=== PATIENT | female | born 1955 | race Caucasian/White ===

== ENCOUNTER 2019-10-13 06:32 | Observation (INO) | payer MEDICARE ==
[2019-10-07 16:07] LABS: BASOPHILS % 0.6 % (0.0-1.0); EOSINOPHILS # (AUTO) 0.1 (0.0-0.4); EOSINOPHILS % 1.5 % (0.0-6.0); HEMATOCRIT 37.3 % (34.2-44.1); HEMOGLOBIN 11.9 g/dL (12.0-16.0); LYMPHOCYTES # (AUTO) 2.2 (1.0-3.2); LYMPHOCYTES % 32.7 % (18.0-39.1); MEAN CORPUSCULAR HEMOGLOBIN 27.9 pg (28-32); MEAN CORPUSCULAR HGB CONC 31.9 g/dL (31-35); MEAN CORPUSCULAR VOLUME 87.6 fL (81-99); MONOCYTES # (AUTO) 0.7 (0.2-0.8); MONOCYTES % 10.7 % (4.4-11.3); NEUTROPHILS # (AUTO) 3.7 (2.1-6.9); NEUTROPHILS % 54.4 % (38.7-80.0); PLATELET COUNT 292 x10e3/uL (140-360); RED BLOOD COUNT 4.26 x10e6/uL (3.6-5.1); RED CELL DISTRIBUTION WIDTH 13.3 % (11.7-14.4)
[2019-10-07 16:17] LABS: INR 0.92; PROTHROMBIN TIME 12.8 seconds (11.9-14.5)
[2019-10-07 16:18] LABS: PARTIAL THROMBOPLASTIN TIME 24.8 seconds (23.8-35.5)
[2019-10-07 16:23] LABS: ANION GAP 12.5 mmol/L (8-16); CALCIUM 9.2 mg/dL (8.4-10.2); CREATININE, SERUM 1.03 mg/dL (0.57-1.11); POTASSIUM 4.5 mmol/L (3.5-5.1)
--- NOTE | 2019-10-07 16:52 | Diagnostic Imaging Report ---
Examination: PA and lateral view of the chest. COMPARISON: None. INDICATION: Preoperative evaluation, spine surgery DISCUSSION: Lines/tubes: None. Lungs: The lungs are well inflated and clear. No pneumonia or pulmonary edema. Pleura: No pleural effusion or pneumothorax. Heart and mediastinum: The heart and the mediastinum are unremarkable. Bones and soft tissues: No acute bony abnormalities. IMPRESSION: 1. No acute cardiopulmonary abnormalities. Signed by: Dr. Tim Lambert M.D. on 10/07/2019 4:49 PM
[~2019-10-13] VITALS: Ht 154.9 cm; Wt 61.2 kg
[~2019-10-13 06:32] MED LIST: ASPIRIN81 MG PO; MELOXICAM7.5 MG PO; NEXIUM40 MG PO; PREMARIN CREAM VG; RIZATRIPTAN5 MG PO; VITAMIN B-121000 MCG PO; VITAMIN D3250 MCG PO; [UNRECOGNIZED DRUG - OTHER] OU
[2019-10-13] MEDS ORDERED: BACITRACIN 50,000 UNIT VIAL ONE (06:54)
[2019-10-13] MEDS ORDERED: THROMBIN FOR SOLN 5,000 UNIT VIAL ONE (06:54)
[2019-10-13] MEDS ORDERED: BUPIVACAINE 0.5%/EPI 30 ML SDV INJ ONE (06:54)
[2019-10-13] MEDS ORDERED: CEFAZOLIN SOD 1 GM/NS 50ML 50 ML IV ONE (07:25)
[2019-10-13] MEDS ORDERED: MORPHINE SULFATE 5 MG/ML VIAL IM PRN (10:30)
[2019-10-13] MEDS ORDERED: ONDANSETRON HCL INJ 2MG/ML 2ML 2 MG/ML VIAL IV PRN (10:30)
[2019-10-13] MEDS ORDERED: MELOXICAM 7.5 MG TAB PO PRN (10:30)
[2019-10-13] MEDS ORDERED: ACETAMINOPHEN 325 MG TAB PO PRN (10:30)
[2019-10-13] MEDS ORDERED: PROMETHAZINE HCL (IM) 25 MG/ML VIAL IM PRN (10:30)
[2019-10-13] MEDS ORDERED: CARISOPRODOL 350 MG TAB PO PRN (10:30)
[2019-10-13] MEDS: LACTATED RINGER'S 1,000 ML IV SCH ×2 (10:30→18:50)
[2019-10-13] MEDS ORDERED: RIZATRIPTAN BENZOATE 10 MG PO PRN (10:30)
[2019-10-13] MEDS ORDERED: MAGNESIUM/ALUMINUM/SIMETHICONE 30 ML UDC PO PRN (10:30)
[2019-10-13] MEDS ORDERED: HYDROMORPHONE 2MG/ML 2 MG/ML ML IV PRN (10:30)
[2019-10-13] MEDS ORDERED: CONJUGATED ESTROGENS VG SCH (10:30)
[2019-10-13] MEDS ORDERED: [UNRECOGNIZED DRUG - OTHER] OU PRN (10:30)
--- OUTSIDE RECORDS SUMMARY | 2019-10-13 11:00 | XMS REPORT | Continuity of Care Document ---
Author Author [facility] Organization [facility] Address [address] [place] [address] Phone Unavailable Care Team Providers Care Staff Midwife Name Role Phone Curry BENSON, Salvador Tatum PCP CATHIE REYES Attphyiwona Astudillo MD, Miguel Attphys Payers Payer Name Policy Type Policy Number Effective Date Expiration Date S ource AETNA MEDICAREAETNA MEDICARE HMO/PPO [facility]xxxxxxxx2018-Present HMO xxxxxxxx 2018 00:00:00 [facility] Problems This patient has no known problems. Allergies, Adverse Reactions, Alerts Allergy Name Allergy Type Status Severity Reaction(s) Onset Date Inacti ve Date Treating Clinician Comments Source Levofloxacin Propensity to adverse reactions to drug Active 2015-08-28 00:00:00 Judah ramirez No Known Allergies DA Active U 2011-05-28 00:00:00 [facility] Family History Family Member Diagnosis Comments Start Date Stop Date Source Other Diabetes Judah Crump ist Other Heart disease Judah reyes Other Hypertension Judah Meth odroseline Social History Social Habit Start Date Stop Date Quantity Comments Source Sex Assigned At [facility] Alcohol intake 2016-08-27 00:00:00 2016-08-27 00:00:00 Current non-drinker of alcohol (finding) [facility] Smoking Status Start Date Stop Date Source Never smoker So Method[facility] t Medications Ordered Medication Name Filled Medication Name Start Date Stop Da te Current Medication? Ordering Clinician Indication Dosage Frequency Signature (SIG) Comments Components Source esomeprazole (NexIUM) 40 MG capsule 2019-03-22 00:00:00 Yes TAKE ONE (1) CAPSULE(S) BY MOUTH DAILY BEFORE BREAKFAST. [facility] cyanocobalamin (VITAMIN B-12) 1000 MCG tablet 2019-03-15 11:12:4 4 Yes 1000ug QD Take 1,000 mcg by mouth daily. [facility] conjugated estrogens (PREMARIN) 0.625 mg/gram vaginal cream 2019-03-15 11:12:44 Yes .5g QD Insert 0.5 g into the vagina daily. [facility] aspirin (ECOTRIN) 81 MG enteric coated tablet 2019-03-15 11:09:5 3 Yes 81mg QD Take 81 mg by mouth daily. Zah[facility] cholecalciferol, vitamin D3, (VITAMIN D3) 1,000 unit tablet 2019-03-15 11:09:53 Yes 1000U QD Take 1,000 Units by mouth snehal ly. [facility] meloxicam (MOBIC) 7.5 mg tablet 2019-03-15 11:09:53 Yes 7.5mg Q24H Take 7.5 mg by mouth daily as needed for moderate pain. [facility] rizatriptan HAND HARDENER (MAXALT-HAND HARDENER) 10 MG disintegrating tablet 2019-03-05 00:00:00 Yes [facility] esomeprazole (NexIUM) 40 MG capsule 2018-03-03 00:00:0 0 2019-03-22 00:00:00 No TAKE 1 CAPSULE DAILY BEFORE BREAKFAST [facility] Vital Signs Vital Name Observation Time Observation Value Comments Source Systolic blood pressure 2019-03-15 11:12:00 125 mm[Hg] [facility] Diastolic blood pressure 2019-03-15 11:12:00 81 mm[Hg] [facility] Heart rate 2019-03-15 11:12:00 80 /min [facility] Body height 2019-03-15 11:12:00 157.5 cm [facility] Body weight 2019-03-15 11:12:00 60.782 kg [facility] BMI 2019-03-15 11:12:00 24.51 kg/m2 [facility] Procedures This patient has no known procedures. Plan of Care Planned Activity Planned Date Details Comments Source Future Scheduled Test 2022-09-11 00:00:00 COLONOSCOPY SCREEN ING [code = COLONOSCOPY SCREENING] [facility] Scheduled Test 2019-11-01 00:00:00 INFLUENZA VACCINE [code = INFLUENZA VACCINE] [facility] Scheduled Test 2018 00:00:00 65+ PNEUMOCOCCAL V ACCINE (1 of 2 - PCV13) [code = 65+ PNEUMOCOCCAL VACCINE (1 of 2 - PCV13)] [facility] Future Scheduled Test 2003 00:00:00 BREAST CANCER SCRE ENING [code = BREAST CANCER SCREENING] [facility] Scheduled Test 2003 00:00:00 SHINGLES VACCINES (#1) [code = SHINGLES VACCINES (#1)] [facility] Results Test Description Test Time Test Comments Results Result Comments Source CHEST 2 VIEWS 2019-10-07 16:49:00 [place] [address] Patient Name: CATHY ZIEGLER MR #: [id number] : 1955 Age/Sex: 64/F Req #: [id number] Adm Physician: Ordered by: CATHIE REYES MD Report #: [id number] Location: OR Room/Bed: Procedure: [id number] DX/CHEST 2 VIEWS Exam Date: Exam Time: REPORT STATUS: Signed Examination: PA and lateral view of the chest. COMPARISON: None. INDICATION: Preoperative evaluation, spine surgery DISCUSSION: Lines/tubes: None. Lungs: The lungs are well inflated and clear. No pneumonia or pulmonary edema. Pleura: No pleural effusion or pneumothorax. Heart and mediastinum: The heart and the mediastinum are unremarkable. Bones and soft tissues: No acute bony abnormalities. IMPRESSION: 1. No acute cardiopulmonary abnormalities. Signed by: Dr. Dlalas Nash M.D. on 10/07/2019 4:49 PM Dictated By: DALLAS NAHS MD 48 Transcribed By: ZARA on 10/07/191648 COPY TO: CATHIE REYES MD - CT ABD PELVIS W/CONT 2018-12-18 09:07:00 Nam e: CATHY ZIEGLER [facility] : 1955 Age/S: 63 / F [address] [facility] Unit #: [id number] Loc: [facility] [place] [address] Phys: Farhad Gallegos MD Acct: [id number] Dis Date: Status: REG ER PHONE #: [phone] Exam Date: 12/18/2018 0850 FAX #: [phone] Reason: vomiting. periumb pain EXAMS: CPT CODE: [id number] CT ABD PELVIS W/CONT 35452 REASON FOR EXAM: vomiting. periumb pain EXAM ORDER DATE: 12/18/2018 8:34 AM Ordering Gregory: Farhad Gallegos MD PROCEDURE: - CT ABD PELVIS W/CONT COMPARISON: FINDINGS: CT images of the abdomen and pelvis were obtained with IV and without oral contrast at 5mm. Dose modulation, iterative reconstruction, and/or weight based adjustment of the MA/KV was utilized to reduce the radiation dose to as low as reasonably ach ievable. Intravenous contrast: 100cc of Omnipaque 370. The liver, spleen, pancreas are grossly within normal limits. The gallbladder is unremarkable by CT The kidneys are within normal limits. The urinary bladder is unremarkable. The colon and stomach are within normal limits without evidence of obstruction. The appendix is unremarkable. No evidence of free air or free fluid. The uterus is not visualized suggestive of status post hysterectomy with multiple surgical clips in the pelvis along the left iliac chain IMPRESSION: Minimal fluid distention of multiple small bowel loops suggestive of ileus at 0907 Reported and signed by: Chirag Narayan M.D. CC: Farhad Gallegos MD; Cathie Reyes MD Technologist:KIA العراقي, RT(R),CT CTDI: DLP: Trnscb Date/Time: 12/18/2018 (3909) [email or web address] Orig Print D/T: S: 12/18/2018 (5282) PAGE 1 Signed Report BASIC METABOLIC PANEL 2018-12-18 06:57:00 Test Item SODIUM (test code = NA) 143 mmol/L 136-145 N POTASSIUM (test code = K) 4.2 mmol/L 3.5-5.1 N CHLORIDE (test code = CL) 105 mmol/L 101-109 N CARBON DIOXIDE (test code = CO2) 25.3 mmol/L 21-32 N ANION GAP (test code = GAP) 17 mmol/L 10-20 N GLUCOSE (test code = GLU) 142 mg/dL 74-106 H BLOOD UREA NITROGEN (test code = BUN) 21 mg/dL 3-21 N GLOMERULAR FILTRATION RATE (test code = GFR) > 60 mL/min >=60 Estimated GFR by using Modified MDRD formula.Chronic kidney disease is defined as either kidney damageor GFR <60 mL/min/1.73 m2 for >3 months. CREATININE (test code = CREAT) 0.88 mg/dL 0.55-1.3 N BUN/CREATININE RATIO (test code = BUN/CREA) 23.9 10-20 H CALCIUM (test code = CA) 9.1 mg/dL 8.4-10.2 N HEPATIC FUNCTION [id number] 06:57:00* Test Item Value Reference Range Interpretation Comments TOTAL PROTEIN (test code = PROT) 7.5 g/dL 6.5-8.4 N ALBUMIN (test code = ALB) 4.5 g/dL 3.4-4.8 N GLOBULIN (test code = GLOB) 3.0 G/DL 1-10 N ALBUMIN/GLOBULIN RATIO (test code = A/G) 1.50 RATIO 0.75-1.50 N BILIRUBIN TOTAL (test code = BILT) 1.10 mg/dL 0.0-1.0 H BILIRUBIN DIRECT (test code = BILD) 0.20 mg/dL 0.0-0.30 N SGOT/AST (test code = AST) 24 U/L 6-32 N SGPT/ALT (test code = ALT) 19 U/L 12-78 N N ote: Change in REFERENCE RANGE due to new reagent method. ALKALINE PHOSPHATASE TOTAL (test code = ALKP) 133 U/L 38-126 H [id number] 06:57:00* Test Item Value Reference Range Interpretation Comments LIPASE (test code = LIP) 138 U/L 128-270 N BASIC METABOLIC [id number] 06:51:00* Test Item Value Reference Range Interpretation Comments SODIUM (test code = NA) 143 mmol/L 136-145 N POTASSIUM (test code = K) 4.2 mmol/L 3.5-5.1 N CHLORIDE (test code = CL) 105 mmol/L 101-109 N CARBON DIOXIDE (test code = CO2) 25.3 mmol/L 21-32 N ANION GAP (test code = GAP) 17 mmol/L 10-20 N GLUCOSE (test code = GLU) 142 mg/dL 74-106 H BLOOD UREA NITROGEN (test code = BUN) 21 mg/dL 3-21 N GLOMERULAR FILTRATION RATE (test code = GFR) > 60 mL/min >=60 Estimated GFR by using Modified MDRD formula.Chronic kidney disease is defined as either kidney damageor GFR <60 mL/min/1.73 m2 for >3 months. CREATININE (test code = CREAT) 0.88 mg/dL 0.55-1.3 N BUN/CREATININE RATIO (test code = BUN/CREA) 23.9 10-20 H CALCIUM (test code = CA) 9.1 mg/dL 8.4-10.2 N HEPATIC FUNCTION [id number] 06:51:00* Test Item Value Reference Range Interpretation Comments TOTAL PROTEIN (test code = PROT) gram/dL 6.4-8.2 ALBUMIN (test code = ALB) g/dL 3.4-5.0 GLOBULIN (test code = GLOB) g/dL 2.7-4.2 ALBUMIN/GLOBULIN RATIO (test code = A/G) 0.75-1.50 BILIRUBIN TOTAL (test code = BILT) mg/dL 0.2-1.2 BILIRUBIN DIRECT (test code = BILD) mg/dL 0.0-0.20 SGOT/AST (test code = AST) IUnit/L 15-37 SGPT/ALT (test code = ALT) U/L 10-69 ALKALINE PHOSPHATASE TOTAL (test code = ALKP) IUnit/L 45-117 [id number] 06:51:00* Test Item Value Reference Range Interpretation Comments LIPASE (test code = LIP) Unit/L 144-286 CBC W/O [id number] 06:43:00* Test Item Value Reference Range Interpretation Comments WHITE BLOOD CELL (test code = WBC) 11.2 K/mm3 4.5-12.5 N RED BLOOD CELL (test code = RBC) 4.87 mill/mm3 3.7-5.2 N HEMOGLOBIN (test code = HGB) 13.6 gram/dL 11.5-15.5 N HEMATOCRIT (test code = HCT) 41.9 % 36.0-46.0 N MEAN CELL VOLUME (test code = MCV) 86.0 fL 80-98 N MEAN CELL HGB (test code = MCH) 27.9 picogram 27.0-33.0 N MEAN CELL HGB CONCETRATION (test code = MCHC) 32.5 gram/dL 33.0-36. 0 L RED CELL DISTRIBUTION WIDTH (test code = RDW) 12.9 % 11.6-16. 2 N RED CELL DISTRIBUTION WIDTH SD (test code = RDW-SD) 41.2 fL 37 .0-51.0 N PLATELET COUNT (test code = PLT) 293 K/mm3 150-450 N MEAN PLATELET VOLUME (test code = MPV) 9.5 fL 6.7-11.0 N URINALYSIS [id number] 06:43:00* Test Item Value Reference Range Interpretation Comments UA COLOR (test code = COLU) YELLOW YELLOW UA APPEARANCE (test code = APPU) SLIGHT HAZY CLEAR A UA GLUCOSE DIPSTICK (test code = DGLUU) norm mg/dL NEGATIVE UA BILIRUBIN DIPSTICK (test code = BILU) NEGATIVE mg/dL NEGATIVE UA KETONE DIPSTICK (test code = KETU) 5 (Trace) mg/dL NEGATIVE A UA SPECIFIC GRAVITY (test code = SGU) 1.030 1.001-1.035 UA BLOOD DIPSTICK (test code = MARIE) 50 (2+) David/uL NEGATIVE A UA PH DIPSTICK (test code = JULIANNE) 5.0 5.0-8.0 UA PROTEIN DIPSTICK (test code = PROU) 100 (2+) mg/dL Neg-15 A UA UROBILINIOGEN DIPSTICK (test code = URO) norm mg/dL 0.0-0.2 UA NITRITE DIPSTICK (test code = DONAL) NEGATIVE NEGATIVE UA LEUKOCYTE ESTERASE DIPSTICK (test code = LEUU) 25 Fabi/uL (Tra ce) uL NEGATIVE A UA WBC (test code = WBCU) 3-5 per HPF 0-5 UA RBC (test code = RBCU) 0-3 per HPF 0-5 UA EPITHELIAL CELLS (test code = EPIU) Moderate (5-10/hpf) per HPF Few UA BACTERIA (test code = BACU) MANY per HPF NONE A Urine Source? Clean CatchBREAST ULTRASOUND [id number] 08:38:20- BREAST ULTRASOUND BILATERALULTRASOUND OF BOTH BREASTS AND BOTH AXILLA: 04/01/19 19CLINICAL: Dense breasts. Comparison is made to exams dated 02/16/2018 mammog deric and 02/10/2017 ultrasound - [facility]-. Color flow ultrasou nd of both breasts and both axilla was performed. Dempsey scale images of the real -time examination were reviewed. No abnormalities were seen sonographically in either breast or either axilla. IMPRESSION: NEGATIVE There is no sonographic e vidence of malignancy. Resume annual screening mammography in one year. Jazlyn Pina M.D. yaq/:04/01/2018 08:38:20 Entry: - 04/06/2018 09:25:23[facility] Technologist: Kolby IRVING, [facility]-letter sent: B IRADS 1-2 Normal Ultrasound BI-RADS: 1 NegativeSCR MAMM BILATERAL CAD DIGITAL 2018-02-16 12:00:11 - SCR MAMM BILATERAL CAD DIGITALBILATERAL DIGITAL SCREENING MAMMOGRAM WITH CAD: 02/16/2018CLINICAL: Asymptomatic. Current mammographic images were evaluated by either a [employer] M-Vu or a [employer] ImageChecker CAD (computer aided detection system). Comparison is made to exams dated 02/10/2017 mammogram, 01/01/2016 mammogram, and 12/27/2014 mammogram - [facility]-. The tissue of both breasts is heterogeneously dense. This may lower the sensitivity of mammography. There are benign vascular calcifications and a calcification in both breasts. No suspicious mass, architectural distortion, malignant type calcification, or lymph node abnormality detected. Breast architecture is stable compared to prior exams.IMPRESSION: BENIGNThere is no mammographic evidence of malignancy. Resume annual screening mammography in one year. Jovan León M.D. et/hector rad:02/16/2018 12:00:11 Hospital Ward Clerk: Tianna IRVING, [facility]-FWletter sent: BIRADS 1-2 Normal Mammogram BI-RADS: 2 Benign
--- OUTSIDE RECORDS SUMMARY | 2019-10-13 11:00 | XMS REPORT | Clinical Summary ---
Author Author [facility] Organization [facility] Address Unknown Phone Unavailable Care Team Providers Care Dough Mixer Operator Name Role Phone Rc Zapien MD PCP Allergies Comments Active Allergy Reactions Severity Noted Date Levofloxacin 08/28/2015 Medications End Date Status Medication Sig Dispensed Refills Start Date Active aspirin (ECOTRIN) 81 MG Take 81 mg by 0 enteric coated tablet mouth daily. Active cholecalciferol, vitamin Take 1,000 0 D3, (VITAMIN D3) 1,000 Units by unit tablet mouth daily. Active meloxicam (MOBIC) 7.5 mg Take 7.5 mg 0 tablet by mouth daily as needed for moderate pain. Active rizatriptan JEWELRY BENCH MOLDER 0 (MAXALT-JEWELRY BENCH MOLDER) 10 MG 0 disintegrating tablet Active cyanocobalamin (VITAMIN Take 1,000 0 B-12) 1000 MCG tablet mcg by mouth daily. Active conjugated estrogens Insert 0.5 g 0 (PREMARIN) 0.625 mg/gram into the vaginal cream vagina daily. Active esomeprazole (NexIUM) 40 TAKE ONE (1) 90 capsule 2 MG capsule CAPSULE(S) BY 0 MOUTH DAILY BEFORE BREAKFAST. 03/22/2019 Discontinued esomeprazole (NexIUM) 40 TAKE 1 90 capsule 3 0 MG capsule CAPSULE DAILY 9 BEFORE BREAKFAST Active Problems Not on file Encounters Care Team Description Date Type Specialty Miguel Astudillo MD 03/22/2019 Refill Gastroenterology Miguel Astudillo MD Gastroesophageal reflux disease, esophag itis presence not specified (Primary Dx) 03/15/2019 Office Visit Gastroenterology after 10/12/2018 Family History Medical History Relation Name Comments Diabetes Other Heart disease Other Hypertension Other Relation Name Status Comments Other Social History Date Tobacco Use Types Packs/Day Years Used Never Smoker Drinks/Week oz/Week Comments Alcohol Use No Sex Assigned at Date Recorded Not on file Industry Job Start Date Occupation Not on file Not on file Not on file Travel End Travel History Travel Start No recent travel history available. Last Filed Vital Signs Reading Time Taken Comments Vital Sign 125/81 03/15/2019 11:12 AM HISTOLOGIST TECHNOLOGIST Blood Pressure 80 03/15/2019 11:12 AM HISTOLOGIST TECHNOLOGIST Pulse - - Temperature - - Respiratory Rate - - Oxygen Saturation - - Inhaled Oxygen Concentration 60.8 kg (134 lb) 03/15/2019 11:12 AM HISTOLOGIST TECHNOLOGIST Weight 157.5 cm (5' 2") 03/15/2019 11:12 AM HISTOLOGIST TECHNOLOGIST Height 24.51 03/15/2019 11:12 AM HISTOLOGIST TECHNOLOGIST Body Mass Index Plan of Treatment Health Maintenance Due Date Last Done Comments BREAST CANCER SCREENING 2003 SHINGLES VACCINES (#1) 2003 65+ PNEUMOCOCCAL VACCINE 2018 (1 of 2 - PCV13) INFLUENZA VACCINE 11/01/2019 COLONOSCOPY SCREENING 09/11/2022 09/11/2017 Results Not on fileafter 10/12/2018 Insurance Type Payer Benefit Subscriber ID Effective Phone Address Plan / Dates Group HMO AETNA MEDICARE AETNA xxxxxxxx 2018-P MEDICARE resent HMO/PPO [facility] [phone] Advance Directives For more information, please contact: [phone] Patient Mri Manager Explanation Type Date Recorded Advance Directives, Living Will and Medical Power of It Operations Specialist
[2019-10-13] MEDS ORDERED: MEPERIDINE HCL INJ 25 MG/ML VIAL ONE ×2 (11:21→12:06)
[2019-10-13 13:08] VITALS: BP 130/71
--- NOTE | 2019-10-13 13:09 | Operative Report ---
DATE OF PROCEDURE: 10/13/2019 SURGEON: Anival Reyes MD PREOPERATIVE DIAGNOSIS: C4-C5 and C5-C6 spondylosis with radiculopathy above the level of previous C6-C7 fusion, M50.120. POSTOPERATIVE DIAGNOSIS: C4-C5 and C5-C6 spondylosis with radiculopathy above the level of previous C6-C7 fusion, M50.120. PROCEDURES: 1. C4-C5 anterior cervical diskectomy and microsurgical osteophyte resection and allograft fusion, 30734. 2. C5-C6 anterior cervical diskectomy and microsurgical osteophyte resection and allograft fusion, 44576. 3. Preparation of tricortical iliac crest allograft, . 4. C4-C5 and C5-C6 anterior cervical plating with Synthes CSLP plate, [id number]. 5. Removal of C6-C7 plate, 48759. 6. Exploration of C6-C7 fusion, . ANESTHESIA: General. INDICATIONS: The patient is a 64-year-old woman, who presents with C4-C5 and C5-C6 spondylosis with central and bilateral foraminal stenosis above the level of the previous C6-C7 instrumented fusion. She was taken surgery for decompression of the C4-C5 and C5-C6 segment and removal of the C6-C7 plate and exploration of C6-C7 fusion. PROCEDURE IN DETAIL: After induction of general anesthesia, the patient was placed on the operating table in supine position. The right side of the neck was prepped and draped in sterile fashion. The fluoroscopic C-arm was positioned in cross-table lateral orientation. A transverse incision was created on the right side of neck, superimposed on the C6 vertebral body as determined by fluoroscopy. The platysma was divided in line with the incision. A subplatysmal dissection was carried out and avascular plane of dissection was developed medially. Sternocleidomastoid muscle was followed medial to the carotid sheath to the anterior border of the cervical spine. The deep cervical fascia was opened and the esophagus was retracted to the left. The scar layer overlying the previous C6-C7 anterior cervical plate was resected and the plate was exposed. Each of the four locking screws in each of the four bone screws within the previous Synthes plate were unscrewed and removed. The plate was mobilized and removed. The underlying C6-C7 fusion was explored and found to be solid. Attention was directed to the C4-C5 and C5-C6 segments. The attachments of longus colli muscles to the vertebral bodies of C4, C5, and C6 were divided. The anterior longitudinal ligament was resected. The anterior osteophytes were resected. Erhard posts were inserted into C4 and C6 and the Erhard distractor was used to distract both disk spaces simultaneously under the operating microscope, the contents of both disks were thoroughly evacuated with angled curettes and pituitary rongeurs. The posterior osteophytes were meticulously drilled with a 2 mm cutting bur on a high-speed drill until they were completely removed. The posterior annulus of the disk, chronically herniated disk material, and the posterior longitudinal ligament were resected layer by layer until the dura was fully exposed and decompressed. The medial aspects of the hypertrophic uncinate processes were resected bilaterally with particular attention given to the left side to fully expose any compressed origins of the corresponding C5 and C6 nerve roots. After satisfactory decompression had been achieved, the endplates were prepared for fusion. Two pieces of tricortical iliac crest allograft were cut to the size and shapes of the disk spaces, and were inserted into the disk spaces under distraction and fluoroscopic guidance. The distraction was released and distraction posts were removed. A Synthes CSLP small stature anterior cervical plate was selected and was affixed to vertebral bodies of C4, C5, and C6 with three pairs of 14 x 4.35 mm screws. All screw holes were drilled and tapped on the lateral fluoroscopic guidance. All screws were locked with the appropriate locking screws and excellent construct was obtained. The wound was copiously irrigated with bacitracin solution. Meticulous hemostasis was secured. Retractor was removed. The platysma was closed with 3-0 Vicryl sutures. The skin was closed with 4-0 Monocryl sutures in subcuticular fashion. Steri-Strips and dressing were applied. The patient was awakened, extubated, and taken to Postanesthesia Care Unit in stable condition. No intraoperative complications were encountered. Estimated blood loss was 30 mL. Anival Reyes MD PP/TERESITA /[id number]
[2019-10-13] MEDS ORDERED: EPHEDRINE SULFATE INJ 50 MG/ML VIAL ONE (14:03)
[2019-10-13] MEDS: CEFAZOLIN SOD 1 GM/NS 50ML 50 ML IV SCH ×2 (14:34→21:30)
[2019-10-13] MEDS: CEPACOL SORE THROAT LOZENGES PO PRN (14:34)
[2019-10-13] MEDS ORDERED: FENTANYL CITRATE/PF 100MCG/2 ML INJ ONE (14:40)
[2019-10-13 16:00] VITALS: BP 114/67
[2019-10-13] MEDS: OXYCODONE/ACETAMINOPHEN 5-325 1 EACH TABLET PO PRN ×2 (17:01→23:00)
[2019-10-13] MEDS ORDERED: ONDANSETRON HCL INJ 2MG/ML 2ML 2 MG/ML VIAL ONE (17:42)
[2019-10-13] MEDS ORDERED: PROPOFOL IV EMULSION 10 MG/ML 20 ML VIAL ONE (17:42)
[2019-10-13] MEDS ORDERED: DEXAMETHASONE SOD PHOS INJ 4 MG/ML VIAL ONE (17:42)
[2019-10-13] MEDS ORDERED: ROCURONIUM BROMIDE 10 MG/ML 5ML VIAL IV ONE (17:42)
[2019-10-13] MEDS ORDERED: LIDOCAINE HCL 2% LOCAL INJ 5 ML SDV VIAL INJ ONE (17:42)
[2019-10-13] MEDS ORDERED: SEVOFLURANE INHAL SOLN 250 ML PEN BTL ONE (17:42)
[2019-10-13] MEDS ORDERED: GLYCOPYRROLATE INJ 0.2 MG/ML VIAL ONE (17:42)
[2019-10-13] MEDS ORDERED: NEOSTIGMINE 1 MG/ML 10ML VIAL ONE (17:42)
[2019-10-13 18:27] VITALS: BP 130/71
[2019-10-13 20:00] VITALS: BP 107/66
[2019-10-13] MEDS ORDERED: ZOLPIDEM TARTRATE 5 MG TAB PO PRN (21:00)
[2019-10-13 21:30] VITALS: BP 107/66
--- NOTE | 2019-10-13 21:30 | NUR ---
PATIENT IN STABLE CONDITION AOX4, NO SIGNS OF DISTRESS NOTED. IV ANTIBIOTICS ARE RUNNING AT ORDERED RATE AND PATIENT VOICES PAIN AT A LEVEL OF 3, WILL PROMPTLY BE MEDICATED ORDERED. PATIENT REGULARLY AMBULATES UP AND DOWN THE HALLS SAFELY, NO SIGNS OF DISTRESS. BED IS IN LOW POSITION, SIDE RAILS ARE UP, CALL LIGHT IS WITHIN REACH, WILL CONTINUE TO MONITOR.
[2019-10-14] VITALS: BP 100/63
[2019-10-14] MEDS: LACTATED RINGER'S 1,000 ML IV SCH ×2 (01:11→07:12)
[2019-10-14 04:00] VITALS: BP 112/58
[2019-10-14] MEDS: CEFAZOLIN SOD 1 GM/NS 50ML 50 ML IV SCH (05:55)
[2019-10-14] MEDS: CEPACOL SORE THROAT LOZENGES PO PRN (05:56)
--- NOTE | 2019-10-14 07:00 | NUR ---
BEDSIDE ROUND COMPLETE NO DISTRESS NOTED UPDATED ON POC VOCIED UNDERSTANDING, SHARON PAIN AT THIS TIME, DSG TO ANTERIOR CERVICAL C/D/I, CERVICAL COLLAR IN PLACE, NO OTHER CO VOICED CALL LIGHT IN REACH WILL CONTINUE TO MONITOR
[2019-10-14 08:21] VITALS: BP 115/67
[2019-10-14 08:42] VITALS: BP 115/67
[2019-10-14] MEDS ORDERED: CHOLECALCIFEROL 1,000 UNIT TAB PO SCH (09:00)
[2019-10-14] MEDS ORDERED: CYANOCOBALAMIN 1,000 MCG TAB PO SCH (09:00)
[2019-10-14] MEDS ORDERED: CHOLECALCIFEROL PO SCH (09:00)
[2019-10-14] MEDS ORDERED: PANTOPRAZOLE SOD 40 MG TABEC PO SCH (09:00)
[2019-10-14] MEDS: OXYCODONE/ACETAMINOPHEN 5-325 1 EACH TABLET PO PRN (11:30)
[2019-10-14 12:25] VITALS: BP 107/60
[2019-10-17] MEDS ORDERED: ESTROGENS CONJUGATED VAGINAL CR 45 GM TUBE PV SCH (09:00)
== END 2019-10-14 14:17 | disposition home or self-care (01) ==
LOC: OR 06:32 → PACU V 10:18 → MED/SURG 12:50
PROVIDERS: ADMIT Neurological Surgery; ATTEND Neurological Surgery
DX: M50.120 Mid-cervical disc disorder, unspecified level (principal); K21.9 Gastro-esophageal reflux disease without esophagitis; K57.90 Diverticulosis of intestine, part unspecified, without perforation or abscess without bleeding; E78.00 Pure hypercholesterolemia, unspecified; F41.9 Anxiety disorder, unspecified; Z88.1 Allergy status to other antibiotic agents; Z11.59 Encounter for screening for other viral diseases; Z01.810 Encounter for preprocedural cardiovascular examination; Z01.812 Encounter for preprocedural laboratory examination; Z01.818 Encounter for other preprocedural examination
CPT/HCPCS: 20931; 22551; 22552; 22830; 22845; 36415; 71046; 80048; 85025; 85610; 85730; 86850; 86900; 88300; 88304; 93005; C1713 ×4; C1768; G0378 ×2; J0690 ×2; J1100; J2001; J2175; J2405; J2704; J2710; J3010; S0164; U0002; 77003

== ENCOUNTER → 2020-05-14 | Outpatient (CLI) | payer MEDICARE | LOC: RAD 09:24 | PROVIDERS: ATTEND Neurological Surgery | DX: M50.20 Other cervical disc displacement, unspecified cervical region (principal); M43.22 Fusion of spine, cervical region | CPT/HCPCS: 72050 ==